=== PATIENT | male | born 1960 | race Caucasian/White ===

== ENCOUNTER 2020-11-13 10:56 | Outpatient (CLI) | payer BC ==
--- NOTE | 2020-11-13 11:23 | RAD ---
LUMBAR SPINE SERIES 4 VIEWS: HISTORY: Patient injured back a year ago and has been having pain ever since. The vertebral bodies are normal in height. Degenerative osteophytes are seen along the course of the spine with mild disk narrowing at the L3-4, L4-5, and L5-S1 levels. No spondylolisthesis. Pedicles appear intact. IMPRESSION: Mild arthritic changes of the spine. No signs of any compression fracture. POS: [facility]
== END 2020-11-13 10:57 | disposition home or self-care (01) ==
LOC: BICRAD 10:56
PROVIDERS: ATTEND Family Medicine
DX: M46.1 Sacroiliitis, not elsewhere classified (principal); M47.816 Spondylosis without myelopathy or radiculopathy, lumbar region
CPT/HCPCS: 72110

== ENCOUNTER 2025-04-24 07:39 | Outpatient (CLI) | payer BC ==
[2025-04-24 08:34] LABS: Estimated GFR - POC 52.0
== END 2025-04-24 07:40 | disposition home or self-care (01) ==
LOC: CT 07:39
PROVIDERS: ATTEND Family Medicine
DX: R10.13 Epigastric pain (principal); R13.19 Other dysphagia; R63.4 Abnormal weight loss; K57.30 Diverticulosis of large intestine without perforation or abscess without bleeding; E27.8 Other specified disorders of adrenal gland; K81.9 Cholecystitis, unspecified
CPT/HCPCS: 36415; 71260; 74177; 82565

== ENCOUNTER 2025-04-30 19:40 | Inpatient (IN) | payer BC ==
[2025-04-30 20:03] VITALS: BMI 29.0
[2025-04-30] MEDS ORDERED: Glucagon 1 MG/ML KIT IM PRN (20:59)
[2025-04-30] MEDS ORDERED: Ondansetron PF 4 MG/2 ML Vial IVP PRN (20:59)
[2025-04-30] MEDS ORDERED: Dextrose 50% Abboject 50 ML SYRINGE SLOW IVP PRN (20:59)
[2025-04-30] MEDS ORDERED: Acetaminophen 325 MG TAB PO PRN (20:59)
[2025-04-30 22:36] LABS: ALT (SGPT) 8 U/L (Less than 45); AST (SGOT) 17 U/L (11-34); Albumin 3.3 g/dL (3.1-4.5); Alkaline Phosphatase 162 U/L (40-110); Anion Gap 18 mmol/L (10-20); BUN (Urea Nitrogen) 9 mg/dL (8.4-25.7); Bilirubin, Total 1.3 mg/dL (0.3-1.2); Calc. Creatinine Clearance 55 mL/min (70-130); Calcium 7.2 mg/dL (7.8-10.44); Carbon Dioxide 18 mmol/L (23-31); Chloride 109 mmol/L (98-107); Globulin 3.2 g/dL (2.4-3.5); Glucose 132 mg/dL (80-115); Magnesium 1.0 mg/dL (1.6-2.6); Potassium 3.1 mmol/L (3.5-5.1); Sodium 142 mmol/L (136-145)
[2025-04-30] MEDS: Magnesium 2 GM/50 ML(in water) 2 GM in Premix 1 BAG IVPB SCH (22:54)
[2025-05-01 05:38] LABS: #Basophils 0.03 10x3/uL (0.0-0.2); #Eosinophils 0.08 10x3/uL (0.0-0.7); #Monocytes 0.30 10x3/uL (0.11-0.59); #Neutrophils 2.77 10x3/uL (1.40-6.50); %Basophils 0.8 % (0.0-1.0); %Eosinophils 2.1 % (0.0-10.0); %Lymphocytes 15.2 % (21.0-51.0); %Monocytes 7.9 % (0.0-10.0); %Neutrophils 72.7 % (42.0-75.0); Hematocrit 22.8 % (42.0-52.0); Hemoglobin 8.0 g/dL (14.0-18.0); Mean Corpuscular Hemoglobin 33.2 pg (27.0-31.0); Mean Corpuscular Volume 94.6 fL (78.0-98.0); Platelet Count 168 10x3/uL (130-400); Red Blood Cell (RBC) Count 2.41 mill/uL (4.70-6.10); White Blood Cell (WBC) Count 3.81 10x3/uL (4.8-10.8)
[2025-05-01 05:57] LABS: Iron 51 ug/dL (65-175); Iron Binding Capacity, Total 181 mcg/dL (261-462); Magnesium 1.5 mg/dL (1.6-2.6)
[2025-05-01 06:08] LABS: Anion Gap 14 mmol/L (10-20); BUN (Urea Nitrogen) 9 mg/dL (8.4-25.7); Calc. Creatinine Clearance 66 mL/min (70-130); Calcium 6.9 mg/dL (7.8-10.44); Carbon Dioxide 21 mmol/L (23-31); Chloride 107 mmol/L (98-107); Glucose 124 mg/dL (80-115); Iron 50 ug/dL (65-175); Iron Binding Capacity, Total 181 mcg/dL (261-462); Potassium 3.4 mmol/L (3.5-5.1); Sodium 139 mmol/L (136-145)
[2025-05-01] MEDS ORDERED: Electrolyte Replacement Protocol 1 EACH FS SCH (06:15)
[2025-05-01 06:26] LABS: Ferritin 764.6 ng/mL (22-322); Vitamin B12 763.0 pg/mL (211-911)
[2025-05-01] MEDS: Pantoprazole 40 MG VIAL IVP SCH (09:04)
[2025-05-01] MEDS: Magnesium 2 GM/50 ML(in water) 2 GM in Premix 1 BAG IVPB SCH (09:05)
[2025-05-01] MEDS: Gabapentin 300 MG CAP PO SCH (20:41)
[2025-05-02 05:41] LABS: #Basophils Less than 0.03 10x3/uL (0.0-0.2); #Eosinophils 0.16 10x3/uL (0.0-0.7); #Monocytes 0.34 10x3/uL (0.11-0.59); #Neutrophils 2.31 10x3/uL (1.40-6.50); %Basophils 0.3 % (0.0-1.0); %Eosinophils 4.3 % (0.0-10.0); %Lymphocytes 22.6 % (21.0-51.0); %Monocytes 9.1 % (0.0-10.0); %Neutrophils 62.1 % (42.0-75.0); Hematocrit 21.8 % (42.0-52.0); Hemoglobin 7.7 g/dL (14.0-18.0); Mean Corpuscular Hemoglobin 33.5 pg (27.0-31.0); Mean Corpuscular Volume 94.8 fL (78.0-98.0); Platelet Count 147 10x3/uL (130-400); Red Blood Cell (RBC) Count 2.30 mill/uL (4.70-6.10); White Blood Cell (WBC) Count 3.72 10x3/uL (4.8-10.8)
[2025-05-02 06:28] LABS: Anion Gap 11 mmol/L (10-20); BUN (Urea Nitrogen) 5 mg/dL (8.4-25.7); Calc. Creatinine Clearance 83 mL/min (70-130); Calcium 6.9 mg/dL (7.8-10.44); Carbon Dioxide 22 mmol/L (23-31); Chloride 107 mmol/L (98-107); Glucose 109 mg/dL (80-115); Potassium 3.0 mmol/L (3.5-5.1); Sodium 137 mmol/L (136-145)
[2025-05-02 09:06] VITALS: TEMP 98.8
[2025-05-02] MEDS: CALCIUM GLUC 1 GM/NS 50 ML 1 GM in Premix 1 BAG IVPB SCH (09:35)
[2025-05-02 09:52] VITALS: BP 158/90
[2025-05-02] MEDS ORDERED: PROPOFOL 0 ML ONE (10:39)
[2025-05-02] MEDS ORDERED: PROPOFOL 20 ML ONE (10:40)
== END 2025-05-02 17:10 | disposition home or self-care (01) | DRG 918 ==
LOC: T4-B 19:40 → OBSVTOIN 05-01 17:17
PROVIDERS: ADMIT Family Medicine; ATTEND Internal Medicine
PROC: 0DB98ZX Excision of Duodenum, Via Natural or Artificial Opening Endoscopic, Diagnostic (ICD-10-PCS; principal; 2025-05-02)
PROC: 0DB48ZX Excision of Esophagogastric Junction, Via Natural or Artificial Opening Endoscopic, Diagnostic (ICD-10-PCS; 2025-05-02)
PROC: 0D758ZZ Dilation of Esophagus, Via Natural or Artificial Opening Endoscopic (ICD-10-PCS; 2025-05-02)
DX: T38.3X1A Poisoning by insulin and oral hypoglycemic [antidiabetic] drugs, accidental (unintentional), initial encounter (principal); N17.9 Acute kidney failure, unspecified; E87.20 Acidosis, unspecified; E78.5 Hyperlipidemia, unspecified; N18.31 Chronic kidney disease, stage 3a; E87.6 Hypokalemia; E11.22 Type 2 diabetes mellitus with diabetic chronic kidney disease; I12.9 Hypertensive chronic kidney disease with stage 1 through stage 4 chronic kidney disease, or unspecified chronic kidney disease; R63.4 Abnormal weight loss; R13.10 Dysphagia, unspecified; D63.1 Anemia in chronic kidney disease; K57.30 Diverticulosis of large intestine without perforation or abscess without bleeding; K82.4 Cholesterolosis of gallbladder; R19.7 Diarrhea, unspecified; E80.6 Other disorders of bilirubin metabolism; E11.42 Type 2 diabetes mellitus with diabetic polyneuropathy; K21.00 Gastro-esophageal reflux disease with esophagitis, without bleeding; K26.9 Duodenal ulcer, unspecified as acute or chronic, without hemorrhage or perforation; Z98.890 Other specified postprocedural states; Z79.899 Other long term (current) drug therapy; Z79.84 Long term (current) use of oral hypoglycemic drugs; Z68.29 Body mass index [BMI] 29.0-29.9, adult; Z91.011 Allergy to milk products
CPT/HCPCS: 36415; 36416; 76705; 78226; 80048; 82607; 82728; 83036; 83540; 83550; 83735; 85025; 88305; 88342; A9537; J0613; J2470; J2704; J3475; J7030

== ENCOUNTER 2025-06-05 20:03 | Inpatient (IN) | payer BC ==
[2025-06-05 22:02] LABS: #Basophils Less than 0.03 10x3/uL (0.0-0.2); #Eosinophils 0.12 10x3/uL (0.0-0.7); #Monocytes 0.35 10x3/uL (0.11-0.59); #Neutrophils 4.04 10x3/uL (1.40-6.50); %Basophils 0.4 % (0.0-1.0); %Eosinophils 2.3 % (0.0-10.0); %Lymphocytes 11.9 % (21.0-51.0); %Monocytes 6.7 % (0.0-10.0); %Neutrophils 77.9 % (42.0-75.0); Hematocrit 24.5 % (42.0-52.0); Hemoglobin 8.5 g/dL (14.0-18.0); Mean Corpuscular Hemoglobin 32.2 pg (27.0-31.0); Mean Corpuscular Volume 92.8 fL (78.0-98.0); Platelet Count 164 10x3/uL (130-400); Red Blood Cell (RBC) Count 2.64 mill/uL (4.70-6.10); White Blood Cell (WBC) Count 5.19 10x3/uL (4.8-10.8)
[2025-06-05] MEDS ORDERED: Ondansetron PF 4 MG/2 ML Vial ONE (22:03)
[2025-06-05 22:13] LABS: ALT (SGPT) 8 U/L (Less than 45); AST (SGOT) 20 U/L (11-34); Albumin 3.6 g/dL (3.1-4.5); Alkaline Phosphatase 147 U/L (40-110); Anion Gap 17 mmol/L (10-20); BUN (Urea Nitrogen) 18 mg/dL (8.4-25.7); Bilirubin, Total 2.0 mg/dL (0.3-1.2); Calc. Creatinine Clearance 0 mL/min (70-130); Calcium 7.8 mg/dL (7.8-10.44); Carbon Dioxide 19 mmol/L (23-31); Chloride 107 mmol/L (98-107); Globulin 2.6 g/dL (2.4-3.5); Glucose 138 mg/dL (80-115); Lipase 36 U/L (8-78); Magnesium 1.1 mg/dL (1.6-2.6); Potassium 3.2 mmol/L (3.5-5.1); Sodium 140 mmol/L (136-145)
[2025-06-05 22:27] LABS: Bacteria/HPF None Seen HPF (None Seen); CAUTI Indications for Culture Pelvic or flank pain; Glucose, Urine (Dipstick) Normal (Negative); Leukocyte Negative Leu/uL (Negative); Protein, Urine (Dipstick) 100 mg/dL (Neg-Trace); RBC/HPF 0-3 HPF (0-3); Specific Gravity, Urine 1.021 (1.002-1.036); WBC/HPF 0-3 HPF (0-3)
[2025-06-05 22:29] LABS: Urine Culture Reflex No No
[2025-06-05] MEDS ORDERED: Magnesium 2 GM/50 ML BAG (IN WATER) ONE (22:52)
[2025-06-05] MEDS ORDERED: Potassium Chloride 20 MEQ (100 mL) BAG ONE (22:52)
[2025-06-06] MEDS ORDERED: Acetaminophen 325 MG TAB PO PRN (01:07)
[2025-06-06] MEDS ORDERED: Ondansetron PF 4 MG/2 ML Vial IVP PRN (01:07)
[2025-06-06] MEDS ORDERED: HYDROcodone/Acetaminophen 5/325 mg Tablet PO PRN (01:59)
[2025-06-06] MEDS ORDERED: Glucagon 1 MG/ML KIT IM PRN (02:12)
[2025-06-06] MEDS ORDERED: Dextrose 50% Abboject 50 ML SYRINGE SLOW IVP PRN (02:12)
[2025-06-06 02:47] VITALS: BMI 28.4
[2025-06-06] MEDS: Magnesium 2 GM/50 ML(in water) 2 GM in Premix 1 BAG IVPB SCH (02:51)
[2025-06-06 04:49] LABS: #Basophils Less than 0.03 10x3/uL (0.0-0.2); #Eosinophils 0.15 10x3/uL (0.0-0.7); #Monocytes 0.31 10x3/uL (0.11-0.59); #Neutrophils 2.95 10x3/uL (1.40-6.50); %Basophils 0.5 % (0.0-1.0); %Eosinophils 3.7 % (0.0-10.0); %Lymphocytes 15.4 % (21.0-51.0); %Monocytes 7.6 % (0.0-10.0); %Neutrophils 72.1 % (42.0-75.0); Hematocrit 23.2 % (42.0-52.0); Hemoglobin 7.8 g/dL (14.0-18.0); Mean Corpuscular Hemoglobin 32.1 pg (27.0-31.0); Mean Corpuscular Volume 95.5 fL (78.0-98.0); Platelet Count 135 10x3/uL (130-400); Red Blood Cell (RBC) Count 2.43 mill/uL (4.70-6.10); White Blood Cell (WBC) Count 4.09 10x3/uL (4.8-10.8)
[2025-06-06 04:58] LABS: Anion Gap 14 mmol/L (10-20); BUN (Urea Nitrogen) 16 mg/dL (8.4-25.7); Calc. Creatinine Clearance 44 mL/min (70-130); Calcium 7.1 mg/dL (7.8-10.44); Carbon Dioxide 21 mmol/L (23-31); Chloride 105 mmol/L (98-107); Glucose 139 mg/dL (80-115); Magnesium 1.6 mg/dL (1.6-2.6); Potassium 3.1 mmol/L (3.5-5.1); Sodium 137 mmol/L (136-145)
[2025-06-06] MEDS: Sucralfate 1 GM TAB PO SCH (10:19)
[2025-06-06] MEDS: Pantoprazole 40 MG DR.TAB PO SCH (10:19)
[2025-06-06] MEDS: Heparin 5,000 UNITS/ML VIAL SC SCH (10:19)
[2025-06-06] MEDS: Metoclopramide HCl 10 MG (2 mL) VIAL IVP SCH (13:25)
[2025-06-06 15:39] VITALS: BMI 28.4
[2025-06-07 04:55] LABS: #Basophils Less than 0.03 10x3/uL (0.0-0.2); #Eosinophils 0.19 10x3/uL (0.0-0.7); #Monocytes 0.26 10x3/uL (0.11-0.59); #Neutrophils 2.27 10x3/uL (1.40-6.50); %Basophils 0.6 % (0.0-1.0); %Eosinophils 5.6 % (0.0-10.0); %Lymphocytes 17.5 % (21.0-51.0); %Monocytes 7.7 % (0.0-10.0); %Neutrophils 67.4 % (42.0-75.0); Hematocrit 21.9 % (42.0-52.0); Hemoglobin 7.4 g/dL (14.0-18.0); Mean Corpuscular Hemoglobin 32.2 pg (27.0-31.0); Mean Corpuscular Volume 95.2 fL (78.0-98.0); Platelet Count 134 10x3/uL (130-400); Red Blood Cell (RBC) Count 2.30 mill/uL (4.70-6.10); White Blood Cell (WBC) Count 3.37 10x3/uL (4.8-10.8)
[2025-06-07 05:39] LABS: Anion Gap 10 mmol/L (10-20); BUN (Urea Nitrogen) 15 mg/dL (8.4-25.7); Calc. Creatinine Clearance 57 mL/min (70-130); Calcium 6.9 mg/dL (7.8-10.44); Carbon Dioxide 22 mmol/L (23-31); Chloride 107 mmol/L (98-107); Glucose 114 mg/dL (80-115); Magnesium 1.6 mg/dL (1.6-2.6); Potassium 3.1 mmol/L (3.5-5.1); Sodium 136 mmol/L (136-145)
[2025-06-07] MEDS: Magnesium 2 GM/50 ML(in water) 2 GM in Premix 1 BAG IVPB SCH (09:44)
[2025-06-07] MEDS: Potassium Phosphate 30 MMOL in Sodium Chloride 0.9% 250 ML 250 ML IVPB SCH (13:26)
[2025-06-08 05:15] LABS: ALT (SGPT) Less than 7 U/L (Less than 45); AST (SGOT) 19 U/L (11-34); Albumin 2.9 g/dL (3.1-4.5); Alkaline Phosphatase 119 U/L (40-110); Anion Gap 13 mmol/L (10-20); BUN (Urea Nitrogen) 13 mg/dL (8.4-25.7); Bilirubin, Total 0.8 mg/dL (0.3-1.2); Calc. Creatinine Clearance 55 mL/min (70-130); Calcium 7.0 mg/dL (7.8-10.44); Carbon Dioxide 22 mmol/L (23-31); Chloride 105 mmol/L (98-107); Globulin 2.5 g/dL (2.4-3.5); Glucose 126 mg/dL (80-115); Magnesium 1.7 mg/dL (1.6-2.6); Potassium 3.3 mmol/L (3.5-5.1); Sodium 137 mmol/L (136-145)
[2025-06-08 06:26] LABS: Campy jejuni + coli by PCR Negative (Negative); STEC Shiga Toxin 1+2 Negative (Negative); Salmonella spp. by PCR Negative (Negative); Shigella spp + EIEC by PCR Negative (Negative)
[2025-06-08 10:22] VITALS: BP 154/89; TEMP 97.7
[2025-06-11 15:14] LABS: Fatty Acid Droplets Normal (.); Neutral Fats And/Or Soaps Normal (.)
[2025-06-17 11:14] LABS: Routine O & P Final report (.)
== END 2025-06-08 14:25 | disposition home or self-care (01) | DRG 74 ==
LOC: ERS 20:03 → 2NO 06-06 00:29
PROVIDERS: ADMIT Internal Medicine; ATTEND Internal Medicine
DX: E11.43 Type 2 diabetes mellitus with diabetic autonomic (poly)neuropathy (principal); N17.9 Acute kidney failure, unspecified; E87.6 Hypokalemia; K31.84 Gastroparesis; F10.90 Alcohol use, unspecified, uncomplicated; E78.5 Hyperlipidemia, unspecified; K21.9 Gastro-esophageal reflux disease without esophagitis; E11.22 Type 2 diabetes mellitus with diabetic chronic kidney disease; E88.09 Other disorders of plasma-protein metabolism, not elsewhere classified; I12.9 Hypertensive chronic kidney disease with stage 1 through stage 4 chronic kidney disease, or unspecified chronic kidney disease; N18.31 Chronic kidney disease, stage 3a; K76.0 Fatty (change of) liver, not elsewhere classified; Z91.011 Allergy to milk products; Z79.899 Other long term (current) drug therapy; Z79.84 Long term (current) use of oral hypoglycemic drugs; Z98.890 Other specified postprocedural states; E55.9 Vitamin D deficiency, unspecified; R16.0 Hepatomegaly, not elsewhere classified; E80.6 Other disorders of bilirubin metabolism; D63.1 Anemia in chronic kidney disease
CPT/HCPCS: 36415; 36416; 74176; 80048; 80053; 81001; 82306; 82310; 82705; 83010; 83036; 83605; 83615; 83630; 83690; 83735; 83880; 83970; 84100; 84484; 85025; 87177; 87209; 87324; 87328; 87329; 87428; 87449; 87505; 93005; 96374; 96375; J1644; J1815; J2765; J3475; J3480; J7030; J7050

== ENCOUNTER 2025-06-25 22:19 | Inpatient (IN) | payer BC ==
[2025-06-25 22:52] LABS: #Basophils 0.04 10x3/uL (0.0-0.2); #Eosinophils 0.15 10x3/uL (0.0-0.7); #Monocytes 0.55 10x3/uL (0.11-0.59); #Neutrophils 3.19 10x3/uL (1.40-6.50); %Basophils 0.8 % (0.0-1.0); %Eosinophils 3.2 % (0.0-10.0); %Lymphocytes 16.0 % (21.0-51.0); %Monocytes 11.6 % (0.0-10.0); %Neutrophils 67.3 % (42.0-75.0); Hematocrit 26.2 % (42.0-52.0); Hemoglobin 8.9 g/dL (14.0-18.0); Mean Corpuscular Hemoglobin 33.5 pg (27.0-31.0); Mean Corpuscular Volume 98.5 fL (78.0-98.0); Platelet Count 253 10x3/uL (130-400); Red Blood Cell (RBC) Count 2.66 mill/uL (4.70-6.10); White Blood Cell (WBC) Count 4.74 10x3/uL (4.8-10.8)
[2025-06-25 23:25] LABS: ALT (SGPT) 12 U/L (Less than 45); AST (SGOT) 31 U/L (11-34); Albumin 3.4 g/dL (3.1-4.5); Alkaline Phosphatase 210 U/L (40-110); Anion Gap 22 mmol/L (10-20); BUN (Urea Nitrogen) 15 mg/dL (8.4-25.7); Bilirubin, Total 0.8 mg/dL (0.3-1.2); Calc. Creatinine Clearance 0 mL/min (70-130); Calcium 8.3 mg/dL (7.8-10.44); Carbon Dioxide 18 mmol/L (23-31); Chloride 111 mmol/L (98-107); Globulin 3.4 g/dL (2.4-3.5); Glucose 93 mg/dL (80-115); Lipase 50 U/L (8-78); Potassium 3.1 mmol/L (3.5-5.1); Sodium 148 mmol/L (136-145)
[2025-06-26] MEDS ORDERED: Furosemide 40 MG (4 mL) VIAL ONE ×2 (00:34→10:58)
[2025-06-26] MEDS ORDERED: Nitroglycerin 0.4 MG TAB (25 Tab Bottle) SL PRN (02:45)
[2025-06-26] MEDS ORDERED: Electrolyte Replacement Protocol 1 EACH FS PRN (02:48)
[2025-06-26] MEDS ORDERED: Dextrose 50% Abboject 50 ML SYRINGE SLOW IVP PRN (02:49)
[2025-06-26] MEDS ORDERED: Glucagon 1 MG/ML KIT IM PRN (02:49)
[2025-06-26] MEDS ORDERED: Furosemide 40 MG TAB PO SCH (07:30)
[2025-06-26 09:34] LABS: Magnesium 1.5 mg/dL (1.6-2.6)
[2025-06-26] MEDS ORDERED: Pantoprazole 40 MG DR.TAB ONE (10:58)
[2025-06-26] MEDS ORDERED: Enoxaparin 40 MG (0.4 mL) SYRINGE ONE (10:59)
[2025-06-26] MEDS ORDERED: Aspirin Chewable 81 MG TAB ONE (10:59)
[2025-06-26] MEDS: Spironolactone 25 MG TAB PO SCH (11:17)
[2025-06-26] MEDS: Enoxaparin 40 MG (0.4 mL) SYRINGE SC SCH (11:17)
[2025-06-26] MEDS: Dapagliflozin Propanediol 10 MG TAB PO SCH (11:17)
[2025-06-26] MEDS: Pantoprazole 40 MG DR.TAB PO SCH (11:17)
[2025-06-26] MEDS: Aspirin 81 mg Enteric Coated Tablet PO SCH (11:17)
[2025-06-26 12:13] VITALS: BMI 30.3
[2025-06-26] MEDS: Furosemide 40 MG (4 mL) VIAL SLOW IVP SCH (15:35)
[2025-06-26 18:10] LABS: #Basophils 0.03 10x3/uL (0.0-0.2); #Eosinophils 0.13 10x3/uL (0.0-0.7); #Monocytes 0.69 10x3/uL (0.11-0.59); #Neutrophils 4.46 10x3/uL (1.40-6.50); %Basophils 0.5 % (0.0-1.0); %Eosinophils 2.2 % (0.0-10.0); %Lymphocytes 10.6 % (21.0-51.0); %Monocytes 11.5 % (0.0-10.0); %Neutrophils 74.2 % (42.0-75.0); Hematocrit 27.0 % (42.0-52.0); Hemoglobin 9.0 g/dL (14.0-18.0); Mean Corpuscular Hemoglobin 33.2 pg (27.0-31.0); Mean Corpuscular Volume 99.6 fL (78.0-98.0); Platelet Count 267 10x3/uL (130-400); Red Blood Cell (RBC) Count 2.71 mill/uL (4.70-6.10); White Blood Cell (WBC) Count 6.01 10x3/uL (4.8-10.8)
[2025-06-26] MEDS: Magnesium Sulfate In Water 4 GM in Premix 1 BAG IVPB SCH (20:45)
[2025-06-26] MEDS ORDERED: Cholecalciferol 1,000 UNITS (25 MCG) TAB PO SCH (21:00)
[2025-06-27 08:33] LABS: Anion Gap 20 mmol/L (10-20); BUN (Urea Nitrogen) 12 mg/dL (8.4-25.7); Calc. Creatinine Clearance 81 mL/min (70-130); Calcium 7.8 mg/dL (7.8-10.44); Carbon Dioxide 25 mmol/L (23-31); Chloride 103 mmol/L (98-107); Glucose 97 mg/dL (80-115); Magnesium 2.2 mg/dL (1.6-2.6); Potassium 2.7 mmol/L (3.5-5.1); Sodium 145 mmol/L (136-145)
[2025-06-27] MEDS: Cholecalciferol 1,000 UNITS (25 MCG) TAB PO SCH (08:52)
[2025-06-27] MEDS: Spironolactone 25 MG TAB PO SCH ×2 (08:53→08:58)
[2025-06-27] MEDS: FLU (Fluarix Triv) 25-26 (6MOS UP)/PF 45 MCG/0.5 ML Syringe IM ONE (08:53)
[2025-06-27] MEDS: Potassium Chloride 20 MEQ in Premix 1 BAG IVPB SCH (08:56)
[2025-06-27 11:00] LABS: Anion Gap 15 mmol/L (10-20); BUN (Urea Nitrogen) 10 mg/dL (8.4-25.7); Calc. Creatinine Clearance 88 mL/min (70-130); Calcium 8.2 mg/dL (7.8-10.44); Carbon Dioxide 30 mmol/L (23-31); Chloride 100 mmol/L (98-107); Glucose 105 mg/dL (80-115); Potassium 2.6 mmol/L (3.5-5.1); Sodium 142 mmol/L (136-145)
[2025-06-27 15:48] LABS: Potassium 3.5 mmol/L (3.5-5.1)
[2025-06-27 17:39] LABS: Potassium 3.8 mmol/L (3.5-5.1)
[2025-06-28 05:00] LABS: Anion Gap 13 mmol/L (10-20); BUN (Urea Nitrogen) 12 mg/dL (8.4-25.7); Calc. Creatinine Clearance 61 mL/min (70-130); Calcium 8.0 mg/dL (7.8-10.44); Carbon Dioxide 27 mmol/L (23-31); Chloride 101 mmol/L (98-107); Glucose 118 mg/dL (80-115); Magnesium 1.8 mg/dL (1.6-2.6); Potassium 3.4 mmol/L (3.5-5.1); Sodium 138 mmol/L (136-145)
[2025-06-28] MEDS: Magnesium 2 GM/50 ML(in water) Premix IVPB SCH (05:17)
[2025-06-28] MEDS ORDERED: Spironolactone 25 MG TAB PO SCH (09:26)
[2025-06-28 11:16] VITALS: TEMP 97.9
[2025-06-28 11:17] VITALS: BP 140/81
[2025-06-29] MEDS ORDERED: Furosemide 40 MG TAB PO SCH (07:30)
== END 2025-06-28 14:15 | disposition home or self-care (01) | DRG 291 ==
LOC: ERS 22:19 → ERHOLD 06-26 01:15 → 2NO 06-26 12:09 → OBSVTOIN 06-27 15:13
PROVIDERS: ADMIT Internal Medicine; ATTEND Internal Medicine
PROC: 3E0234Z Introduction of Serum, Toxoid and Vaccine into Muscle, Percutaneous Approach (ICD-10-PCS; principal; 2025-06-27)
DX: I13.0 Hypertensive heart and chronic kidney disease with heart failure and stage 1 through stage 4 chronic kidney disease, or unspecified chronic kidney disease (principal); I50.33 Acute on chronic diastolic (congestive) heart failure; E87.20 Acidosis, unspecified; N17.9 Acute kidney failure, unspecified; E87.6 Hypokalemia; N18.30 Chronic kidney disease, stage 3 unspecified; I10 Essential (primary) hypertension; E78.5 Hyperlipidemia, unspecified; E11.9 Type 2 diabetes mellitus without complications; Z88.8 Allergy status to other drugs, medicaments and biological substances; Z79.899 Other long term (current) drug therapy; K21.9 Gastro-esophageal reflux disease without esophagitis; E83.42 Hypomagnesemia; D64.9 Anemia, unspecified; Z98.890 Other specified postprocedural states
CPT/HCPCS: 36415; 36416; 71045; 78452; 80048; 80053; 83690; 83735; 83880; 84484; 85025; 93005; 93017; 93306; 93798; 93970; 96372; 96374; 96375; 96376; A9502; G0378; J1650; J1940; J2785; J3475; J3480

== ENCOUNTER 2025-07-07 15:16 | Outpatient (CLI) | payer BC | END 2025-07-07 15:17 | disposition home or self-care (01) | LOC: SCSMRI 15:16 | PROVIDERS: ATTEND Family Medicine | DX: M47.26 Other spondylosis with radiculopathy, lumbar region (principal); M47.27 Other spondylosis with radiculopathy, lumbosacral region; M48.061 Spinal stenosis, lumbar region without neurogenic claudication | CPT/HCPCS: 72148 ==